=== PATIENT | female | born 1965 | race Two or more races ===

== ENCOUNTER 2018-02-24 10:53 | Day surgery (SDC) | payer OTHER ==
[~2018-02-24 10:53] MED LIST: CEFAZOLIN 1 GM INJ; EPHEDrine SULFATE 50 MG/5 ML SYG
[2018-02-24] MEDS ORDERED: hydrALAzine 20 MG INJ IV (11:30)
[2018-02-24] MEDS ORDERED: OXYCODONE/ACETAMINOPHEN (5/325) TAB PO (11:30)
[2018-02-24] MEDS ORDERED: FENTAnyl 50 MCG/ML VIAL IV ×3 (11:30)
[2018-02-24] MEDS ORDERED: DIPHENHYDRAMINE 50 MG INJ IV (11:30)
[2018-02-24] MEDS ORDERED: MEPERIDINE 25 MG INJ IV (11:30)
[2018-02-24] MEDS ORDERED: HYDROmorphONE 1 MG/5 ML IV SYRINGE IV ×2 (11:30)
[2018-02-24 12:24] LABS: ADD MAN DIFF? NO
[2018-02-24 12:26] LABS: BASOPHILS % 0.5 % (0.0-2.0); EOSINOPHILS # 0.2 10^3/ul (0.0-0.5); EOSINOPHILS % 3.7 % (0.0-7.0); HEMATOCRIT 34.8 % (37.0-47.0); HEMOGLOBIN 11.2 g/dl (12.0-16.0); LYMPHOCYTES # 1.2 10^3/ul (0.8-2.9); LYMPHOCYTES % 29.1 % (15.0-51.0); MEAN CORPUSCULAR HEMOGLOBIN 24.5 pg (29.0-33.0); MEAN CORPUSCULAR HGB CONC 32.2 g/dl (32.0-37.0); MEAN CORPUSCULAR VOLUME 76.1 fl (82.0-101.0); MONOCYTE # 0.4 10^3/ul (0.3-0.9); MONOCYTES % 9.3 % (0.0-11.0); NEUTROPHIL # 2.3 10^3/ul (1.6-7.5); NEUTROPHILS % 57.2 % (39.0-77.0); PLATELET COUNT 124 10^3/UL (140-415); RED BLOOD COUNT 4.57 10^6/ul (4.20-5.40); RED CELL DISTRIBUTION WIDTH 16.5 % (11.5-14.5)
[2018-02-24 12:26] LABS: WHITE BLOOD COUNT 4.1 10^3/ul (4.8-10.8)
[2018-02-24 12:31] LABS: HOLD TRANSMISSIONS 1
[2018-02-24 12:45] LABS: ALANINE AMINOTRANSFERASE 30 IU/L (13-69); ALBUMIN 4.1 g/dl (3.3-4.9); ALBUMIN/GLOBULIN RATIO 1.17; ALKALINE PHOSPHATASE 190 IU/L (42-121); ANION GAP 15 (8-16); ASPARTATE AMINO TRANSFERASE 29 IU/L (15-46); BLOOD UREA NITROGEN 12 mg/dl (7-20); CARBON DIOXIDE 24 mmol/L (21-31); CHLORIDE 107 mmol/L (97-110); CREATININE 0.63 mg/dl (0.44-1.00); GLUCOSE 115 mg/dl (70-220); POTASSIUM 4.1 mmol/L (3.5-5.1); SODIUM 142 mmol/L (135-144); TOTAL PROTEIN 7.6 g/dl (6.1-8.1)
[2018-02-24] MEDS ORDERED: MIDAZOLAM 1 MG/ML 2 ML INJ (12:45)
[2018-02-24] MEDS ORDERED: LIDOCAINE 2% (SDV) 5 ML INJ (12:46)
[2018-02-24] MEDS ORDERED: PROPOFOL 20 ML (12:46)
[2018-02-24] MEDS ORDERED: FENTAnyl 50 MCG/ML VIAL (12:46)
[2018-02-24 12:47] LABS: INR 1.02; PROTIME 13.5 Sec (11.9-14.9); PT RATIO 1.1
[2018-02-24 12:48] LABS: PARTIAL THROMBOPLASTIN TIME 29.7 Sec (25.0-35.0)
[2018-02-24] MEDS ORDERED: CEFAZOLIN 1 GM INJ (12:58)
[2018-02-24] MEDS ORDERED: METOCLOPRAMIDE 10 MG INJ (12:59)
[2018-02-24] MEDS ORDERED: FAMOTIDINE 20 MG INJ (12:59)
[2018-02-24] MEDS ORDERED: ONDANSETRON 4 MG INJ (12:59)
[2018-02-24] MEDS ORDERED: PHENYLephrine (100 MCG/ML) 5ML SYG ×2 (13:01→13:21)
[2018-02-24] MEDS: BUPIVACAINE 0.5% (SDV) 30 ML INJ (13:03)
[2018-02-24] MEDS ORDERED: HYDROCODONE/APAP (10/325) TAB PO (14:00)
[2018-02-24] MEDS: HYDROmorphONE 1 MG/5 ML IV SYRINGE IV (14:37)
[2018-02-24] MEDS: ONDANSETRON 4 MG INJ IV (14:51)
[2018-02-24] MEDS ORDERED: ONDANSETRON (ODT) 4 MG TAB ODT (15:00)
[2018-02-24] MEDS: LABETALOL HCL 20MG INJ IV (15:27)
[2018-02-24] MEDS: PROCHLORPERAZINE 10 MG INJ IV ×2 (16:20→16:23)
== END 2018-02-24 17:00 | disposition home or self-care (01) ==
LOC: SDS 10:53
DX: T84.84XA Pain due to internal orthopedic prosthetic devices, implants and grafts, initial encounter (principal); Y79.8 Miscellaneous orthopedic devices associated with adverse incidents, not elsewhere classified; M89.9 Disorder of bone, unspecified; L84 Corns and callosities; K21.9 Gastro-esophageal reflux disease without esophagitis; E78.5 Hyperlipidemia, unspecified; E11.9 Type 2 diabetes mellitus without complications; I10 Essential (primary) hypertension; E03.9 Hypothyroidism, unspecified
CPT/HCPCS: 20680; 73630; 80053; 82962; 84703; 85025; 85610; 85730; 88300; 88305

== ENCOUNTER 2019-01-27 12:38 | Day surgery (SDC) | payer OTHER ==
[2019-01-27] MEDS ORDERED: PROPOFOL 60 ML (14:43)
[2019-01-27] MEDS ORDERED: LIDOCAINE 2% (SDV) 5 ML INJ (14:43)
== END 2019-01-27 18:23 | disposition home or self-care (01) ==
LOC: GIL 12:38
DX: D01.0 Carcinoma in situ of colon (principal); E11.9 Type 2 diabetes mellitus without complications; I10 Essential (primary) hypertension; E78.5 Hyperlipidemia, unspecified; E03.9 Hypothyroidism, unspecified; Z79.84 Long term (current) use of oral hypoglycemic drugs; E66.01 Morbid (severe) obesity due to excess calories; Z68.42 Body mass index [BMI] 45.0-49.9, adult
CPT/HCPCS: 45378; 82962

== ENCOUNTER 2019-05-10 11:22 | Day surgery (SDC) | payer OTHER ==
[2019-05-10] MEDS ORDERED: FENTAnyl 50 MCG/ML VIAL (15:14)
[2019-05-10] MEDS ORDERED: LIDOCAINE 2% (SDV) 5 ML INJ (15:14)
[2019-05-10] MEDS ORDERED: PROPOFOL 40 ML (15:14)
== END 2019-05-10 16:48 | disposition home or self-care (01) ==
LOC: GIL 11:22
DX: I85.00 Esophageal varices without bleeding (principal); K31.9 Disease of stomach and duodenum, unspecified; E11.9 Type 2 diabetes mellitus without complications; I10 Essential (primary) hypertension; Z79.84 Long term (current) use of oral hypoglycemic drugs
CPT/HCPCS: 43239; 82962; 88305; 88312; 88313